=== PATIENT | female | born 1955 | race Caucasian/White ===

== ENCOUNTER → 2017-09-26 | Outpatient (CLI) | payer OTHER | LOC: CIMAGING 13:12 | DX: M51.36 Other intervertebral disc degeneration, lumbar region (principal); M43.16 Spondylolisthesis, lumbar region; M41.86 Other forms of scoliosis, lumbar region; Z98.1 Arthrodesis status | CPT/HCPCS: 72100-PO ==

== ENCOUNTER → 2017-11-11 | Outpatient (CLI) | payer OTHER | LOC: CIMAGING 12:42 | DX: Z98.1 Arthrodesis status (principal); M43.16 Spondylolisthesis, lumbar region | CPT/HCPCS: 72100-PO ==

== ENCOUNTER → 2018-05-01 | Outpatient (CLI) | payer OTHER | LOC: CIMAGING 16:15 | PROVIDERS: ATTEND Family Medicine | DX: Z01.811 Encounter for preprocedural respiratory examination (principal); I51.7 Cardiomegaly; J44.9 Chronic obstructive pulmonary disease, unspecified | CPT/HCPCS: 71046-PO ==

== ENCOUNTER 2018-05-22 05:51 | Observation (INO) | payer OTHER ==
[2018-05-22] MEDS ORDERED: ceFAZolin 2 GM/DEXTROSE 100 ML IV ONE (05:58)
[2018-05-22] MEDS ORDERED: FAMOTIDINE 20 MG TAB PO ONE (05:58)
[2018-05-22] MEDS ORDERED: DEXAMETHASONE 4 MG/ML VIAL IVP ONE (05:58)
[2018-05-22] MEDS ORDERED: ACETAMINOPHEN 325 MG TAB PO ONE (05:58)
[2018-05-22] MEDS ORDERED: LIDOCAINE 1% 2 ML INJ ID PRN (05:59)
[2018-05-22] MEDS ORDERED: LR 1,000 ML IV ONE (05:59)
[2018-05-22] MEDS ORDERED: ROPIVACAINE 0.2% 80 MG, EPINEPHrine 0.2 MG, KETOROLAC TROMETHAMINE 30 MG in SYRINGE 0 ML IU ONE (06:00)
[2018-05-22] MEDS ORDERED: TRANEXAMIC ACID 3,000 MG in NS (SYRINGE) 50 ML IRR ONE (06:00)
[2018-05-22] MEDS ORDERED: ceFAZolin 1 GM/5 ML SYR ONE (06:30)
[2018-05-22] MEDS ORDERED: MIDAZOLAM 2 MG/2 ML VIAL IVP ONE (07:00)
--- NOTE | 2018-05-22 07:00 | PDANEPAE ---
ANE History of Present Illness OA here for TKA ANE Past Medical History - Cardiovascular History Hx Hypertension: Yes Hx Arrhythmias: No Hx Chest Pain: No Hx Coronary Artery / Peripheral Vascular Disease: No Hx CHF / Valvular Disease: No Hx Palpitations: No - Pulmonary History Hx COPD: No Hx Asthma/Reactive Airway Disease: No Hx Recent Upper Respiratory Infection: No Hx Oxygen in Use at Home: No Hx Sleep Apnea: No Sleep Apnea Screening Result - Last Documented: Negative - Neurologic History Hx Cerebrovascular Accident: No Hx Seizures: No Hx Dementia: No Neurologic History Comment: neuropathy bilat feet. has issues with chronic all- over itching, takes hydroxizine for relief - Endocrine History Hx Diabetes: No - Renal History Hx Renal Disorders: No - Liver History Hx Hepatic Disorders: No - Neurological & Psychiatric Hx Hx Neurological and Psychiatric Disorders: No - Cancer History Hx Cancer: No - Congenital Disorder History Hx Congenital Disorders: No - GI History Hx Gastrointestinal Disorders: Yes Gastrointestinal History Comment: acid reflux - Other Health History Other Health History: wears glasses. osteoarthritis - Chronic Pain History Chronic Pain: Yes (joint pain) - Surgical History Prior Surgeries: right foot metatarsal fusion, 2018. L4-5 lusion, 08/2017. carpel tunnel surgery, left hand, 02/2018. tubal ligation. appendectomy. cholecystectomy. tonsillectomy. lumbar decompressions x 2 ANE Review of Systems Review of Systems: - Exercise capacity METS (RN): 4 METS ANE Patient History - Allergies Allergies/Adverse Reactions: Penicillins Allergy (Verified 04/18/18 15:43) Anaphylaxis Sulfa (Sulfonamide Antibiotics) Allergy (Verified 04/25/18 12:06) Anaphylaxis sulfamethoxazole [From Bactrim] Allergy (Verified 04/18/18 15:43) Anaphylaxis trimethoprim [From Bactrim] Allergy (Verified 04/18/18 15:43) Anaphylaxis - Home Medications Home medications: home medication list seen and reviewed Home Medications: Alendronate Sodium [Fosamax 70 MG (*)] 70 mg PO ADAMS@0700 04/18/18 [Last Taken 11/02 11:00] Etodolac 400 mg PO BID 04/18/18 [Last Taken 05/15/18] Gabapentin [Neurontin 100 MG (*)] 300 mg PO BID 04/18/18 [Last Taken 05/05/18] Lisinopril [Zestril 10 mg (*)] 10 mg PO DAILY 04/18/18 [Last Taken 05/21/18 21: 00] Ranitidine HCl 150 mg PO BID 04/18/18 [Last Taken 05/21/18 21:00] hydrOXYzine HCL [Hydroxyzine HCl] 50 mg PO DAILY 04/18/18 [Last Taken 05/21/18 21:00] - NPO status NPO Status: no food or drink >8 hours NPO Since - Liquids (Date): 05/21/18 NPO Since - Liquids (Time): 23:00 NPO Since - Solids (Date): 05/21/18 NPO Since - Solids (Time): 19:00 - Anes Hx Anes Hx: slow to awaken from anesthesia - Smoking Hx Smoking Status: Never smoked - Alcohol Use Alcohol Use: None - Family Anes Hx Family Anes Hx: none Family Hx Anesthesia Complications: none ANE Labs/Vital Signs - Vital Signs Blood Pressure: 134/75 Heart Rate: 86 Respiratory Rate: 16 O2 Sat (%): 91 Height: 170.18 cm Weight: 102.058 kg ANE Physical Exam - Airway Neck exam: FROM Mallampati Score: Class 2 Mouth exam: normal dental/mouth exam - Pulmonary Pulmonary: no respiratory distress, clear to auscultation - Cardiovascular Cardiovascular: regular rate and rhythym, no murmur, rub, or gallop - ASA Status ASA Status: II ANE Anesthesia Plan Anesthesia Plan: GA with mask, spinal Regional Anesthesia: single shot NB, adductor canal FNB Total IV Anesthesia: Yes
--- NOTE | 2018-05-22 07:03 | PDHPUP ---
History & Physical Update H&P update statement: This history and physical update is based on an assessment of the patient which was completed after admission or registration (within 24 hours), but prior to the surgery/procedure. H&P update: H&P reviewed & patient examined, no change in patient's condition since H&P completed
[2018-05-22] MEDS ORDERED: PROPOFOL/EMULSION 500 MG/50 ML BOTTLE IV ONE ×3 (07:16→09:25)
[2018-05-22] MEDS ORDERED: CALCIUM CHLORIDE 1 GM/10 ML INJ ONE (07:52)
[2018-05-22] MEDS ORDERED: THROMBIN (BOVINE) 5,000 UNIT VIAL TP ONE (07:52)
[2018-05-22] MEDS ORDERED: clonIDINE 1 MG/10 ML VIAL EP ONE (08:08)
[2018-05-22] MEDS ORDERED: ROPIVACAINE HCL 150 MG/30 ML INJ ONE (08:08)
[2018-05-22] MEDS ORDERED: TRANEXAMIC ACID 3,000 MG/50 ML BAG IRR ONE (08:45)
[2018-05-22] MEDS ORDERED: LISINOPRIL 10 MG TAB PO SCH ×2 (09:00→21:00)
[2018-05-22] MEDS ORDERED: PROPOFOL 200 MG/20 ML VIAL ONE (09:57)
[2018-05-22] MEDS ORDERED: fentaNYL 100 MCG/2 ML INJ IVP PRN (10:09)
[2018-05-22] MEDS ORDERED: oxyCODONE IR 5 MG TAB PO PRN (10:09)
[2018-05-22] MEDS ORDERED: HYDROCODONE/APAP 5/325 TAB PO PRN (10:09)
[2018-05-22] MEDS ORDERED: ACETAMINOPHEN 500 MG TAB PO PRN (10:09)
[2018-05-22] MEDS ORDERED: ONDANSETRON 4 MG/2 ML VIAL IVP PRN ×2 (10:09→10:15)
[2018-05-22] MEDS ORDERED: NALOXONE HCL 0.4 MG/ML INJ IVP PRN (10:09)
--- NOTE | 2018-05-22 10:11 | POSTANESTH ---
Post Anesthetic Evaluation Cardiovascular Status: Normal, Stable, Similar to Pre-Op Cond Respiratory Status: Normal, Stable, Similar to Pre-op Cond. Level of Consciousness/Mental Status: Can Participate in Eval, Alert and Oriented Pain Control: Adequate, Prn Tx Ordered Nausea/Vomiting Control: Adequate, Prn Tx Ordered Complications Possibly Related to Anesthesia: None Noted
--- NOTE | 2018-05-22 10:13 | POSTOPPROG ---
Post Op Note Date of Operation: 05/22/18 Surgeon: Amira Camejo Fish Packer: Suzanne Powers PA-C Anesthesiologist: Dr. Yoav Clark Anesthesia: Epidural, Spinal Pre-op Diagnosis: left knee osteoarthritis Post-op Diagnosis: left knee osteoarthritis Indication: left knee pain Procedure: left TKA Inf/Abcess present in the surg proc area at time of surgery?: No EBL: 50-100 Complications: none
[2018-05-22] MEDS ORDERED: ONDANSETRON DISINTEGRATING 4 MG TAB PO PRN (10:15)
[2018-05-22] MEDS ORDERED: diphenhydrAMINE 25 MG CAP PO PRN (10:15)
[2018-05-22] MEDS ORDERED: PROMETHAZINE HCL 25 MG SUPPR PR PRN (10:15)
[2018-05-22] MEDS ORDERED: METOCLOPRAMIDE 10 MG/2 ML VIAL IVP PRN (10:15)
[2018-05-22] MEDS ORDERED: PROMETHAZINE HCL 25 MG/ML INJ IVP PRN (10:15)
[2018-05-22] MEDS ORDERED: POLYETHYLENE GLYCOL 3350 17 GM PKT PO PRN (10:15)
[2018-05-22] MEDS ORDERED: DIPHENOXYLATE/ATROPINE LOMOTIL 1 TAB PO PRN (10:15)
[2018-05-22] MEDS ORDERED: MAGNESIUM HYDROXIDE 30 ML UDCUP PO PRN (10:15)
[2018-05-22] MEDS ORDERED: LACTULOSE 20 GM/30 ML UDCUP PO PRN (10:15)
[2018-05-22] MEDS ORDERED: BISACODYL 10 MG SUPP PR PRN (10:15)
--- NOTE | 2018-05-22 10:15 | SOAPPROG ---
SOAP Progress Note Assessment/Plan: Assessment/Plan: 62y/o female s/p left TKA - stable and doing well - post-op xrays pending - Active Care system, ASA starts tomorrow - medications as ordered - PT/OT - call with issues or concerns 05/22/18 10:13 Subjective: minimal pain Objective: Vital Signs Temp Pulse Resp BP Pulse Ox 36.6 C 86 16 134/75 H 91 L 05/22/18 06:17 05/22/18 07:00 05/22/18 07:00 05/22/18 07:00 05/22/18 07:00 NAD, waking from anesthesia EOMi, face symmetric wiggles toes bilaterally incision clean, dressed ICD10 Worksheet Patient Problems: Problems Problem Status Onset Osteoarthritis Acute - ICD10 Problem Qualifiers (1) Osteoarthritis
[2018-05-22] MEDS ORDERED: LR 1,000 ML IV SCH (10:30)
[2018-05-22] MEDS: ACETAMINOPHEN 325 MG TAB PO SCH ×2 (11:53→18:07)
[2018-05-22] MEDS: oxyCODONE IR 5 MG TAB PO PRN ×4 (11:57→21:42)
[2018-05-22] MEDS: GABAPENTIN 100 MG CAP PO SCH ×2 (12:56→21:28)
[2018-05-22] MEDS: hydrOXYzine HCL 50 MG TAB PO SCH (12:59)
[2018-05-22] MEDS: ceFAZolin 2 GM/DEXTROSE 100 ML IV SCH ×2 (15:27→21:26)
--- NOTE | 2018-05-22 16:24 | ASMTCMCOM ---
CM Note CM Note Notes: Pt is s/p L TKA. PT has cleared. Pt said her daughter and family live in their basement and her is available to help as well. She will have outpatient PT. They live in [place]. Anticipate d/c home with no CM needs. D/C Plan: Home Independent Date Signed: 05/22/2018 04:24 PM Electronically Signed By:JEFFREY Louie
--- NOTE | 2018-05-22 18:46 | GOP ---
DATE OF OPERATION: 05/22/2018 SURGEON: Amira Camejo MD FINISHING DEPARTMENT SUPERVISOR: Suzanne Powers, JUAQUIN. ANESTHESIA: Spinal with sedation. PREOPERATIVE DIAGNOSIS: Severe osteoarthritis, left knee. POSTOPERATIVE DIAGNOSIS: Severe osteoarthritis, left knee. PROCEDURE PERFORMED: Left total knee arthroplasty. FINDINGS: Preoperative x-rays of the patient's left knee demonstrated severe osteoarthritis. At the time of surgery, this finding was confirmed. The patient had complete loss of the articular cartila ge in both the medial and lateral compartments. There was also loss in the patellofemoral joint. At the time of surgery, a cemented [employer] Journey II total knee arthroplasty was implanted. A size 5 femoral component was cemented on the femoral side, and a size 4 tibial base plate was utili zed. A 12 mm thick cross-linked polyethylene insert was placed in the metal backing at the tibia. A 35 mm round patellar component was also cemented into place. Following implantation of the componen ts, the knee was taken through a range of motion and achieved full extension and 130 degrees of flexi on. The patient had normal stability to varus and valgus stressing both in extension and flexion. T he flexion and extension gaps were symmetrical. The patella tracked well in the trochlear groove. ESTIMATED BLOOD LOSS: Minimal. DESCRIPTION OF PROCEDURE: The patient was taken to the operating room, placed in a supine position o n the operating table. Following placement of a spinal block and induction of adequate sedation, the left leg was prepped and draped in the usual sterile manner. The patient received 2 g of IV Ancef. The leg was elevated and exsanguinated and the tourniquet inflated to 275 mmHg. A midline incision was made extending from 2 fingerbreadths above the superior pole of the patella distally to the tibia l tubercle. Incision was carried down through the subcutaneous tissue to the retinaculum of the knee . A medial parapatellar arthrotomy was performed. The DeMayo leg hardin was used throughout the pro cedure for positioning. The thickness of the patella was measured and then a 9 mm cut was taken from the patella. The cut surface was protected with a metal plate and the patella was placed in the lat eral gutter. Our attention was then turned to the femur. A distal femoral drill hole was placed for intramedullar y referencing on the femoral side. The femoral cutting block was then positioned and pinned on the d istal femur. A +2 cut was taken from the distal femur. The femur was then sized and a size 5 femora l component was chosen as the best fit. The size 5 cutting block was placed on the distal femur and then the anterior, posterior, and chamfer cuts were made. The notch was cleared with the reamer foll owed by the box osteotome. The trial femoral component was then removed and our attention was turned to the tibia. The tibia was retracted anteriorly and again intramedullary referencing was used for the tibia. The tibial cutting block was positioned in the appropriate orientation and then pinned, a nd then the tibial cut was made. The flexion and extension gaps were checked and symmetrical. The t ibia was sized. A size 4 tibial component was chosen and it was pinned in place. The medial and lat eral menisci were removed and the posterior capsule was injected with a joint cocktail. Tranexamic a viktoria was also utilized in the wound and in the posterior capsule. A trial reduction was then performe d with the femoral and tibial components. A size 12 polyethylene was chosen as the best fit. The pa tella was sized and a 35 mm button was selected. The drill holes were placed in the cut patellar dhruv face. The trial reduction was performed with the components and a good fit was noted. All the trial compon ents were removed except for the tibial tray and the keel punch was utilized on that. The tibia was then removed as well. The components were opened and the cement was mixed. All the bony surfaces we re thoroughly irrigated and dried. The tibial component was cemented into place first followed by th e femur and the patella. The knee was brought into extension. All excess cement was removed around the edges of the components using [place] elevators. A 12 mm trial polyethylene was placed in the comp onents while the cement hardened. Once the cement was hard, the knee was flexed up and the trial [place] yethylene was removed and the 12 mm thick polyethylene was opened and implanted. Again, the knee was taken through a range of motion. Stability was checked. The wound was irrigated, and the tournique t was deflated. The retinaculum was closed using #2 FiberWire in a [id number] fashion. Subcuta neous tissues were closed using 2-0 Vicryl. The skin was closed using felipe. Sterile dressings we re applied. The patient tolerated the procedure well. There were no complications. Estimated blood loss minimal. Final sponge and needle counts were correct. The patient was transported to the [facility] very room in good condition. /[id number]/MODL
[2018-05-22] MEDS: SENNOSIDES/DOCUSATE SODIUM TAB PO SCH (21:25)
[2018-05-22] MEDS: FAMOTIDINE 20 MG TAB PO SCH (21:27)
[2018-05-23] MEDS: ACETAMINOPHEN 325 MG TAB PO SCH ×3 (01:11→11:35)
[2018-05-23] MEDS: oxyCODONE IR 5 MG TAB PO PRN ×4 (03:04→15:24)
[2018-05-23] MEDS: CYCLOBENZAPRINE 10 MG TAB PO PRN ×2 (05:51→13:31)
[2018-05-23] MEDS: FAMOTIDINE 20 MG TAB PO SCH (08:40)
[2018-05-23] MEDS: SENNOSIDES/DOCUSATE SODIUM TAB PO SCH (08:40)
[2018-05-23] MEDS: hydrOXYzine HCL 50 MG TAB PO SCH (08:40)
[2018-05-23] MEDS ORDERED: ASPIRIN 325 MG TAB PO SCH (09:00)
[2018-05-23] MEDS ORDERED: FERROUS SULFATE 140 MG TAB.ER PO SCH (09:00)
[2018-05-23 12:27] VITALS: BP 138/87
--- NOTE | 2018-05-23 13:20 | SOAPPROG ---
SOAP Progress Note Assessment/Plan: Assessment/Plan: 62y/o female s/p left TKA POD#1 - stable and doing well - post-op xrays show stable hardware - Active Care system, ASA - PT/OT, did excellent - discharge home with outpatient PT, discussed return precautions; patient to f/ u on 06/05 for post-op, sooner with any issues or changes 05/23/18 13:18 Subjective: Pain well controlled with Oxycodone. Did well with PT. Objective: Vital Signs Temp Pulse Resp BP Pulse Ox 36.9 C 77 11 L 138/87 H 94 05/23/18 12:00 05/23/18 12:00 05/23/18 12:00 05/23/18 12:00 05/23/18 12:00 Laboratory Results 05/23/18 05:35 05/22/18 05/23/18 05/24/18 05:59 05:59 05:59 Intake Total 1450 375 Output Total 1300 400 Balance 150 -25 NAD, well appearing, no distress EOMi, face symmetric incision CDI, no erythema or active drainage; dressing changed in sterile fashion neurovascularly grossly intact ICD10 Worksheet Patient Problems: Problems Problem Status Onset Osteoarthritis Acute - ICD10 Problem Qualifiers (1) Osteoarthritis
--- NOTE | 2018-05-26 15:20 | GDS ---
ADMISSION DIAGNOSES: Left knee osteoarthritis and left knee pain. DISCHARGE DIAGNOSES: Left knee osteoarthritis and left knee pain. HOSPITAL COURSE: The patient is a pleasant 62-year-old female who is well known to our service. She was seen and evaluated and under our care for ongoing left knee pain secondary to severe end-stage o steoarthritis. After careful decision-making and discussion, she elected to proceed forth with a lef t total knee arthroplasty. The procedure was done by Dr. Amira Camejo on May 22, 2018. The p atient tolerated the procedure well without complication. She was transferred to the floor, and PACU criteria was met. She worked with Physical Therapy and Occupational Therapy and continued to make g reat progress. Her pain was well managed. On April 22, 2018, she was in good and stable condition and ready for discharge home. She was given strict instruction for followup on June 05, 2018, or sooner with any issues or changes. She was scheduled for outpatient physical therapy as well to aid in conjunction with her healing process. She was recommended aspirin daily and Active Care System, as well as ambulation for DVT prevention. All of her questions were answered prior to discharge home . /[id number]/MODL
== END 2018-05-23 15:59 | disposition home or self-care (01) ==
LOC: F3E 05:51 → F3N 07:22
PROVIDERS: ADMIT Orthopaedic Surgery; ATTEND Orthopaedic Surgery
PROC: 0SRD0J9 Replacement of Left Knee Joint with Synthetic Substitute, Cemented, Open Approach (ICD-10-PCS; principal; 2018-05-22 07:15)
DX: M17.12 Unilateral primary osteoarthritis, left knee (principal); M81.0 Age-related osteoporosis without current pathological fracture; M85.80 Other specified disorders of bone density and structure, unspecified site; E78.5 Hyperlipidemia, unspecified; I10 Essential (primary) hypertension; K21.9 Gastro-esophageal reflux disease without esophagitis
CPT/HCPCS: 27447; 73560; 97110; 97116; 97161; 97165; 97530; G0378; C1713; J0171; J0690; J0735; J1100; J1885; J2250; J2704; J2795

== ENCOUNTER → 2018-09-19 | Outpatient (CLI) | payer OTHER | LOC: BMCIMAGING 11:36 | PROVIDERS: ATTEND Internal Medicine Rheumatology | DX: M11.241 Other chondrocalcinosis, right hand (principal); M11.242 Other chondrocalcinosis, left hand ==